=== PATIENT | male | born 1985 | race Two or more races ===

== ENCOUNTER 2017-11-05 16:26 | Emergency (ER) | payer SELFPAY ==
[~2017-11-05] VITALS: Ht 182.9 cm; Wt 96.0 kg
[2017-11-05 17:08] VITALS: BP 114/78
[2017-11-05] MEDS ORDERED: TETANUS, DIPHTHERIA, PERTUSSIS VAC/PF 0.5ML (>7YR OLD) IM ONE (17:15)
== END 2017-11-05 18:52 | disposition left against medical advice (07) ==
LOC: ER 16:26
DX: S61.411A Laceration without foreign body of right hand, initial encounter (principal); W26.8XXA Contact with other sharp object(s), not elsewhere classified, initial encounter; Y93.89 Activity, other specified; Y92.018 Other place in single-family (private) house as the place of occurrence of the external cause
CPT/HCPCS: 90715; 99281